=== PATIENT | female | born 1980 | race American Indian/Alaskan Native ===

== ENCOUNTER 2018-04-02 06:58 | Day surgery (SDC) | payer OTHER ==
--- NOTE | 2018-04-02 06:54 | History and Physical Report ---
History of Present Illness Date of examination: 03/31/18 Chief complaint: Dysfunctional Uterine Bleeding History of present illness: Pt is a 38 year old -[place] female presents for surgical management of dysfunctional uterine bleeding not improved by medical management. Past History Past Medical History: other (Obesity ) Past Surgical History: RN OR LPN/uterine surgery (tubal ligation ), section ( x 3 ) RN OR LPN History: abnormal PAP smear, chlamydia (remote history) Family/Genetic History: diabetes, hypertension, cancer Social history: no significant social history, Medications and Allergies Allergies Allergy/AdvReac Type Severity Reaction Status Date / Time No Known Allergies Allergy Verified 03/27/18 10:40 Home Medications Medication Instructions Recorded Confirmed Last Taken Type Meloxicam, Submicronized 15 mg PO DAILY 03/27/18 03/27/18 Unknown History Omeprazole 40 mg PO DAILY 03/27/18 03/27/18 Unknown History Prazosin [Minipress] 1 mg PO DAILY 03/27/18 03/27/18 Unknown History Sertraline [Zoloft] 150 mg PO QDAY 03/27/18 03/27/18 Unknown History traZODone [Desyrel] 50 mg PO QHS 03/27/18 03/27/18 Unknown History Active Meds: Active Medications Lactated Ringer's (Lactated Ringers) 1,000 mls @ 100 mls/hr IV DIRECT BENJAMIN Midazolam HCl (Versed) 2 mg IV PREOP NR Stop: 04/02/18 23:59 Review of Systems All systems: negative - Physical Exam Breasts: Positive: deferred Cardiovascular: Regular rate Lungs: Positive: Clear to auscultation Abdomen: Positive: soft (obese ) Extremities: Positive: normal Results All other labs normal. Assessment and Plan A: Dysfunctional Uterine Bleeding Obesity P: Proceed with dilation and curettage, hysteroscopy, Novasure endometrial ablation and other indicated procedures.
[~2018-04-02 06:58] MED LIST: LACTATED RINGERS 1,000 ML IV SCH; NACL 0.9% IR ONE; VERSED IV NR
[2018-04-02] MEDS ORDERED: ANCEF/STERILE WATER 2 GM/20 ML 2 GM/20 ML SYRINGE IV NR (07:00)
[2018-04-02] MEDS ORDERED: NACL BACTERIOSTATIC INFILTRATI ONE (07:56)
[2018-04-02 08:19] LABS: Hematocrit 32.2 % (30.3-42.9); Hemoglobin 9.9 gm/dl (10.1-14.3); Mean Corpuscular HGB Conc 31 % (30-34); Mean Corpuscular Volume 71 fl (79-97); Platelet Count 251 K/mm3 (140-440); Red Blood Count 4.56 M/mm3 (3.65-5.03)
[2018-04-02 08:28] LABS: Mean Corpuscular Hemoglobin 22 pg (28-32); Red Cell Distribution Width 20.5 % (13.2-15.2)
--- NOTE | 2018-04-02 08:56 | Anesthesia Day of Surgery ---
Anesthesia Day of Surgery - Day of Surgery Patient Examined: Yes Patient H&P Reviewed: Yes Patient is NPO: Yes
[2018-04-02] MEDS ORDERED: DEMEROL IV PRN (08:57)
[2018-04-02] MEDS ORDERED: ZOFRAN IV PRN (08:57)
--- NOTE | 2018-04-02 08:57 | Anesthesia Consultation ---
Anesthesia Consult and Med Hx Date of service: 04/02/18 - Airway Anesthetic Teeth Evaluation: Good ROM Head & Neck: Adequate Mental/Hyoid Distance: Adequate Mallampati Class: Class II Intubation Access Assessment: Probably Good - Pulmonary Exam CTA: Yes - Cardiac Exam Cardiac Exam: RRR - Pre-Operative Health Status ASA Pre-Surgery Classification: ASA3 Proposed Anesthetic Plan: General (obesity, denies gerd) - Central Nervous System Hx Psychiatric Problems: No - Other Systems Hx Alcohol Use: Yes (SOCIALLY) Hx Substance Use: No Hx Cancer: No Hx Obesity: Yes
[2018-04-02] MEDS ORDERED: LACTATED RINGERS 1,000 ML IV SCH (09:00)
[2018-04-02] MEDS ORDERED: DIPRIVAN 10 MG/ML IV ONE (09:07)
[2018-04-02] MEDS ORDERED: XYLOCAINE CARDIAC IV ONE (09:08)
[2018-04-02] MEDS ORDERED: DILAUDID ONE (09:09)
[2018-04-02] MEDS ORDERED: ZEMURON IV ONE (09:09)
[2018-04-02] MEDS ORDERED: ZOFRAN ONE (09:33)
[2018-04-02] MEDS ORDERED: TORADOL ONE (09:33)
[2018-04-02] MEDS ORDERED: ROBINUL ONE ×2 (09:38→09:45)
[2018-04-02] MEDS ORDERED: BLOXIVERZ ONE (09:45)
--- NOTE | 2018-04-02 10:30 | Operative Report ---
Operative Report Operative Report: Date of procedure: April 02, 2018 Preoperative diagnosis: 1) Dysfunctional Uterine Bleeding 2) Obesity Postoperative diagnosis: Same Procedure: 1)Diagnostic Hysteroscopy 2)Dilation and Curettage 3)NovaSure Endometrial Ablation Surgeon: Mary Ling M.D. Findings: 1) Anteverted mobile uterus that sounded to 12 cm 2) Proliferative endometrium on hysteroscopy Anesthesia: General Estimated blood loss: Minimal (10 mL ) IV fluid: 500 mL Specimens: endometrial curettings to pathology Drains: None Complications: None Disposition: Stable to PACU Indications for procedure: The patient is a 38 year old -[place] female who presents for surgical management of dysfunctional uterine bleeding. Operation in detail: After the risks, benefits, alternatives and complications of the procedure were explained to the patient, she gave informed consent for the procedure. She was subsequently taken to the operating room and placed in the dorsal supine position. SCDs noted to be in place and functioning. Gen. anesthesia was then induced without difficulty. The patient was in placement dorsal lithotomy position and prepped and draped in normal sterile fashion. A timeout was performed. An exam under anesthesia was performed yielding a mobile anteverted uterus. The bladder was then catheterized and drained of urine. An open sided speculum was then placed into the vagina for adequate visualization of the cervix. The anterior lip of the cervix was then grasped with a tenaculum for traction. The cervical length was then sounded to 5 cm and the uterus was then sounded to 12 cm. The cavity length was then noted to be 6.5+ cm. At this time a hysteroscope was introduced to visualize the endometrial cavity which revealed proliferative endometrium. A sharp endometrial curettage was then performed and the curettings were sent to pathology. Attention was then turned to the endometrial ablation. At this time White dilators were used to sequentially dilate the cervix to a # 25. Next the disposable NovaSure device was connected to the RF controller. The NovaSure disposable device was deployed to the locked position and noted to fully extend. The device was then placed in the unlocked position. The disposable device was then inserted into the uterine cavity with traction on the tenaculum. The device was then seated per protocol. After moving the device back 0.5 cm, the device was moved superiorly and inferiorly and rotated clockwise and counterclockwise to 45. The cavity width at this time was noted to be 3.7 cm. The cervical collar was then advanced to the cervix. The cavity assessment was then initiated and passed. The ablation procedure was then initiated. Once complete, the cervical collar was moved away from the cervix, the device was moved to the unlocked position, and the disposable NovaSure device was removed from the uterine cavity. The hysteroscope was reintroduced to visualize the charred endometrial cavity.At this time the single -tooth tenaculum was removed from the cervix. Silver nitrate and pressure were placed on the puncture sites to achieve hemostasis. Hemostasis was noted. All instruments were removed from the vagina atraumatically and the procedure was ended. The patient was placed into the dorsal supine position and extubated without difficulty. She was subsequently taken to the PACU in stable condition. She tolerated the procedure well. All counts were correct 2.
--- NOTE | 2018-04-02 10:35 | Short Stay Summary ---
Short Stay Documentation Date of service: 04/02/18 - History H&P: dictated Social history: no significant social history, - Allergies and Medications Current Medications: Allergies No Known Allergies Allergy (Verified 03/27/18 10:40) Home Medications Medication Instructions Recorded Confirmed Last Taken Type Meloxicam, Submicronized 15 mg PO DAILY 03/27/18 03/27/18 Unknown History Omeprazole 40 mg PO DAILY 03/27/18 03/27/18 Unknown History Prazosin [Minipress] 1 mg PO DAILY 03/27/18 03/27/18 Unknown History Sertraline [Zoloft] 150 mg PO QDAY 03/27/18 03/27/18 Unknown History traZODone [Desyrel] 50 mg PO QHS 03/27/18 03/27/18 Unknown History Active Medications Hydromorphone HCl (Dilaudid) 0.5 mg IV Q10MIN PRN PRN Reason: Pain , Severe (7-10) Stop: 04/02/18 15:00 Lactated Ringer's (Lactated Ringers) 1,000 mls @ 100 mls/hr IV DIRECT BENJAMIN Last Admin: 04/02/18 08:24 Dose: 100 mls/hr Cefazolin Sodium (Ancef/Sterile Water 2 Gm/20 Ml) 2 gm in 20 mls @ 80 mls/hr IV PREOP NR; Protocol Stop: 04/02/18 23:59 Lactated Ringer's (Lactated Ringers) 1,000 mls @ 100 mls/hr IV DIRECT BENJAMIN Meperidine HCl (Demerol) 25 mg IV ONCE PRN PRN Reason: Shivering Stop: 04/02/18 15:00 Midazolam HCl (Versed) 2 mg IV PREOP NR Stop: 04/02/18 23:59 - Physical exam Breasts: deferred - Brief post op/procedure progress note Date of procedure: 04/02/18 Pre-op diagnosis: Dysfunctional Uterine Bleeding Post-op diagnosis: same Procedure: 1)Diagnostic Hysteroscopy 2)Dilation and Curettage 3)NovaSure Endometrial Ablation Findings: 1) Anteverted mobile uterus that sounded to 12 cm 2) Proliferative endometrium on hysteroscopy Surgeon: OLU HAGAN Estimated blood loss: minimal Pathology: list (endometrial curettings to pathology) Specimen disposition: to lab Condition: stable - Hospital course Hospital course: Pt underwent hysteroscopy, dilation and curettage and Novasure endometrial ablation which she tolerated well. She was observed in the PACU until she met discharge criteria. - Disposition Condition at discharge: Stable Disposition: DC- TO HOME OR SELFCARE - Discharge Diagnoses (1) DUB (dysfunctional uterine bleeding) Status: Acute (2) Obesity Status: Acute Qualifiers: Serious obesity comorbidity presence: unspecified whether serious comorbidity present Body mass index: BMI 38.0-38.9 Short Stay Discharge Plan Activity: other (Nothing in vagina, no tub baths x 4 weeks ) Weight Bearing Status: Full Weight Bearing Diet: regular Follow up with: MARS HERNANDEZ MD [Primary Care Provider] - 7 Days OLU HAGAN MD [Staff Physician] - 04/16/18 (please call to schedule your appt )
[2018-04-02] MEDS: DILAUDID IV PRN ×3 (10:38→10:58)
[2018-04-02] MEDS ORDERED: PERCOCET 5/325 PO PRN (11:02)
[2018-04-02] MEDS ORDERED: BENADRYL IV ONE (12:07)
--- NOTE | 2018-04-02 12:43 | Post Anesthesia Evaluation ---
- Post Anesthesia Evaluation Patient Participated: Yes Airway Patent: Yes Stable Respiratory Function: Yes Nausea/Vomiting: No Temp > 96.8F: Yes Pain Manageable: Yes Adequeate Hydration: Yes Anesthesia Complications: No
[2018-04-02 18:05] VITALS: BP 130/80
== END 2018-04-02 14:30 | disposition home or self-care (01) ==
LOC: OR 06:58
PROVIDERS: ATTEND Obstetrics & Gynecology
DX: N84.0 Polyp of corpus uteri (principal); E66.9 Obesity, unspecified; Z68.35 Body mass index [BMI] 35.0-35.9, adult; Z98.890 Other specified postprocedural states; Z98.51 Tubal ligation status; Z91.018 Allergy to other foods
CPT/HCPCS: 36415; 58563; 84703; 85027; 88305; A4217; J0690; J1170; J1200; J1885; J2001; J2250; J2405; J2704; J2710; J7120

== ENCOUNTER 2018-10-01 13:36 | Emergency (ER) | payer OTHER ==
--- NOTE | 2018-10-01 15:34 | Emergency Department Report ---
ED Recheck HPI - General Chief Complaint: Skin/Abscess/Foreign Body Stated Complaint: FOLLOW UP/REMOVAL Time Seen by Provider: 10/01/18 15:00 Source: patient Mode of arrival: Ambulatory Limitations: No Limitations - History of Present Illness Initial Visit For: abscess Returns Today for: other (packing removal) Symptoms Since Prior Visit: no new symptoms, improved Associated Symptoms: none. denies: fever, chills, chest pain, shortness of breath, rash, malaise, nasuea, abdominal pain - Related Data Home Medications Medication Instructions Recorded Confirmed Last Taken Meloxicam, Submicronized 15 mg PO DAILY 03/27/18 05/08/18 05/07/18 09:00 Omeprazole 40 mg PO DAILY 03/27/18 05/08/18 05/03/18 17:00 Prazosin [Minipress] 1 mg PO QDAY PRN 03/27/18 05/08/18 04/28/18 21:00 Sertraline [Zoloft] 150 mg PO QDAY 03/27/18 05/08/18 05/07/18 09:00 traZODone [Desyrel] 50 mg PO QHS 03/27/18 05/08/18 05/06/18 21:00 Previous Rx's Medication Instructions Recorded Last Taken Type Docusate Sodium [Colace] 100 mg PO BID PRN #60 capsule 05/11/18 Unknown Rx Ibuprofen [Motrin] 800 mg PO Q8HR PRN #60 tablet 05/11/18 Unknown Rx Oxycodone HCl/Acetaminophen 1 each PO Q6HR PRN #45 tablet 05/11/18 Unknown Rx [Percocet 7.5/325 mg] Acetaminophen/Codeine [Tylenol 1 tab PO Q6H PRN #12 tab 09/28/18 Unknown Rx /Codeine # 3 tab] Clindamycin [Clindamycin CAP] 300 mg PO Q8H #21 cap 09/28/18 Unknown Rx Allergies Allergy/AdvReac Type Severity Reaction Status Date / Time orange Allergy Hives Verified 10/01/18 13:57 pineapple Allergy Hives Verified 10/01/18 13:57 strawberry Allergy HIVES AND Verified 10/01/18 13:57 THROAT SWELLING ED Review of Systems ROS: Stated complaint: FOLLOW UP/REMOVAL Other details as noted in HPI Constitutional: denies: chills, fever Eyes: denies: eye pain, eye discharge, vision change ENT: denies: ear pain, throat pain Respiratory: denies: cough, shortness of breath, wheezing Cardiovascular: denies: chest pain, palpitations Endocrine: no symptoms reported Gastrointestinal: denies: abdominal pain, nausea, diarrhea Genitourinary: denies: urgency, dysuria, discharge Musculoskeletal: denies: back pain, joint swelling, arthralgia Skin: denies: rash, lesions Neurological: denies: headache, weakness, paresthesias Psychiatric: denies: anxiety, depression Hematological/Lymphatic: denies: easy bleeding, easy bruising ED Past Medical Hx - Past Medical History Previous Medical History?: Yes Hx Hypertension: No Hx Heart Attack/AMI: No Hx GERD: Yes Hx Liver Disease: No Hx Renal Disease: No Hx Arthritis: Yes Hx Seizures: No Hx Asthma: No Hx HIV: No - Surgical History Past Surgical History?: Yes Additional Surgical History: hysterectomy 04/2018, x 3 - Social History Smoking Status: Never Smoker Substance Use Type: Alcohol - Medications Home Medications: Home Medications Medication Instructions Recorded Confirmed Last Taken Type Meloxicam, Submicronized 15 mg PO DAILY 03/27/18 05/08/18 05/07/18 09:00 History Omeprazole 40 mg PO DAILY 03/27/18 05/08/18 05/03/18 17:00 History Prazosin [Minipress] 1 mg PO QDAY PRN 03/27/18 05/08/18 04/28/18 21:00 History Sertraline [Zoloft] 150 mg PO QDAY 03/27/18 05/08/18 05/07/18 09:00 History traZODone [Desyrel] 50 mg PO QHS 03/27/18 05/08/18 05/06/18 21:00 History Docusate Sodium [Colace] 100 mg PO BID PRN #60 capsule 05/11/18 Unknown Rx Ibuprofen [Motrin] 800 mg PO Q8HR PRN #60 tablet 05/11/18 Unknown Rx Oxycodone HCl/Acetaminophen 1 each PO Q6HR PRN #45 tablet 05/11/18 Unknown Rx [Percocet 7.5/325 mg] Acetaminophen/Codeine [Tylenol 1 tab PO Q6H PRN #12 tab 09/28/18 Unknown Rx /Codeine # 3 tab] Clindamycin [Clindamycin CAP] 300 mg PO Q8H #21 cap 09/28/18 Unknown Rx ED Physical Exam - General Limitations: No Limitations General appearance: alert, in no apparent distress - Head Head exam: Present: atraumatic, normocephalic - Extremities Exam Extremities exam: Present: normal inspection, full ROM, normal capillary refill, other (dressing to left axilla. no swelling or cellulitis noted. ). Absent: tenderness - Back Exam Back exam: Present: normal inspection, full ROM - Neurological Exam Neurological exam: Present: alert, oriented X3 - Psychiatric Psychiatric exam: Present: normal affect, normal mood - Skin Skin exam: Present: warm, dry, intact, normal color. Absent: rash ED Course Vital Signs 10/01/18 13:50 Temperature 97.8 F Pulse Rate 85 Respiratory 18 Rate Blood Pressure 139/89 O2 Sat by Pulse 98 Oximetry - Reevaluation(s) Reevaluation #1: 10/01/18 15:32 Patient is speaking in full sentences with no signs of distress noted. ED Recheck MDM - Medical Decision Making This is a 38-year-old female that presents with abscess packing removal. She is stable and was examined by me. One fourth iodoform packing has been removed from the left axilla. No signs of pus, , drainage, or cellulitis. No swelling noted. Patient was referred to Follow-up with a primary care doctor in 3-5 days or if symptoms worsen and continue return to emergency room as soon as possible. At time of discharge, the patient does not seem toxic or ill in appearance. No acute signs of distress noted. Patient agrees to discharge treatment plan of care. No further questions noted by the patient. Critical care attestation.: If time is entered above; I have spent that time in minutes in the direct care of this critically ill patient, excluding procedure time. ED Disposition Clinical Impression: Abscess packing removal Disposition: DC-01 TO HOME OR SELFCARE Is pt being admited?: No Does the pt Need Aspirin: No Condition: Stable Instructions: Acute Wound Care (ED) Additional Instructions: Follow-up with a primary care doctor in 3-5 days or if symptoms worsen and continue return to emergency room as soon as possible. Continue taking antibiotic that was prescribed to during her initial digit. Referrals: PRIMARY CARE, [Primary Care Provider] - 3-5 Days GOODJOIN,AASHISH B, MD [Staff Physician] - 3-[address] [facility] [place] [Outside] - 3-5 Days [facility] [Outside] - 3-5 Days Forms: Work/School Release Form(ED)
== END 2018-10-01 15:50 | disposition home or self-care (01) ==
LOC: ED 13:36
CPT/HCPCS: 99282

== ENCOUNTER 2019-06-04 19:52 | Emergency (ER) | payer SELFPAY ==
--- NOTE | 2019-06-04 20:46 | Emergency Department Report ---
Blank Doc - Documentation Documentation: 39-year-old female that presents with midsternum chest pain and SOB. This initial assessment/diagnostic orders/clinical plan/treatment(s) is/are subject to change based on patient's health status, clinical progression and re- assessment by fellow clinical providers in the ED. Further treatment and workup at subsequent clinical providers discretion. Patient/guardians urged not to elope from the ED as their condition may be serious if not clinically assessed and managed. Initial orders include: 1- Patient sent to [facility] for further evaluation and treatment 2- EKG 3- CXR 4- labs
[2019-06-04 21:11] LABS: Basophils % (Auto) 0.5 % (0.0-1.8); Eosinophils # (Auto) 0.1 K/mm3 (0.0-0.4); Eosinophils % (Auto) 2.2 % (0.0-4.3); Hematocrit 41.5 % (30.3-42.9); Hemoglobin 13.4 gm/dl (10.1-14.3); Lymphocytes # (Auto) 2.3 K/mm3 (1.2-5.4); Lymphocytes % (Auto) 41.7 % (13.4-35.0); Mean Corpuscular HGB Conc 32 % (30-34); Mean Corpuscular Volume 89 fl (79-97); Monocytes # (Auto) 0.4 K/mm3 (0.0-0.8); Monocytes % (Auto) 6.3 % (0.0-7.3); Platelet Count 213 K/mm3 (140-440); Red Blood Count 4.68 M/mm3 (3.65-5.03); Red Cell Distribution Width 14.2 % (13.2-15.2)
[2019-06-04 21:36] LABS: BUN/Creatinine Ratio 14; Blood Urea Nitrogen 14 mg/dL (7-17); Calcium 9.5 mg/dL (8.4-10.2); Hemolysis Index 13
[2019-06-04 21:53] LABS: Bilirubin,Urine NEG (Negative); Blood,Urine NEG (Negative); Color,Urine Yellow (Yellow); Mucus,Urine 1+ /HPF; Protein,Urine <15 mg/dL mg/dL (Negative)
--- NOTE | 2019-06-04 22:58 | XRay Report ---
CHEST 2 VIEWS INDICATION / CLINICAL INFORMATION: Chest Pain. COMPARISON: None available. FINDINGS: The lungs are well-inflated and clear. No pleural fluid or pneumothorax. Normal cardiomediastinal kalyn houette. No acute bony abnormality. Signer Name: Gregory Blanca MD Signed: 06/04/2019 10:53 PM Workstation Name: [id number]
[2019-06-04] MEDS ORDERED: ASPIRIN PO ONE (23:24)
--- NOTE | 2019-06-05 01:12 | Emergency Department Report ---
ED Chest Pain HPI - General Chief Complaint: Chest Pain Stated Complaint: CHEST PAIN Time Seen by Provider: 06/04/19 20:45 Source: patient Mode of arrival: Ambulatory Limitations: No Limitations - History of Present Illness Initial Comments: Patient is a 39-year-old -[place] female with a history of GERD and anxiety with the patient presents to the ED with complaint of acute onset persistent left-sided chest wall pain that radiates to the left arm constantly for the last 2 days worse in the last 2 hours prior to arrival. Patient states that the pain is worse with exertion and feels like pressure and tightness in her chest. Patient denies fever, chills, cough, dizziness, headache, nausea, vomiting, traumatic injury, heavy lifting, headache, palpitations, abdominal pain, sore throat, diaphoresis, numbness and tingling of upper extremities bilaterally or neck pain. MD Complaint: chest pain, other (dyspnea) -: Sudden, days(s) (2) Onset: during exertion Pain Location: substernal, left chest Pain Radiation: none Severity: moderate Severity scale (0 -10): 5 Quality: tightness, aching, pressure, squeezing Consistency: constant Improves With: nothing Worsens With: exertion, movement re: dyspnea. denies: nausea, vomting, diaphoresis, sense of impending doom Other Symptoms: denies: cough, fever, syncope, rash, acid taste in mouth, leg swelling, palpitations, burping, other Treatments Prior to Arrival: none - Related Data On Oral Contraceptives: No (s/o Hysterectomy) Home Medications Medication Instructions Recorded Confirmed Last Taken Meloxicam, Submicronized 15 mg PO DAILY 03/27/18 05/08/18 05/07/18 09:00 Omeprazole 40 mg PO DAILY 03/27/18 05/08/18 05/03/18 17:00 Prazosin [Minipress] 1 mg PO QDAY PRN 03/27/18 05/08/18 04/28/18 21:00 Sertraline [Zoloft] 150 mg PO QDAY 03/27/18 05/08/18 05/07/18 09:00 traZODone [Desyrel] 50 mg PO QHS 03/27/18 05/08/18 05/06/18 21:00 Previous Rx's Medication Instructions Recorded Last Taken Type Docusate Sodium [Colace] 100 mg PO BID PRN #60 capsule 05/11/18 Unknown Rx Ibuprofen [Motrin] 800 mg PO Q8HR PRN #60 tablet 05/11/18 Unknown Rx Oxycodone HCl/Acetaminophen 1 each PO Q6HR PRN #45 tablet 05/11/18 Unknown Rx [Percocet 7.5/325 mg] Acetaminophen/Codeine [Tylenol 1 tab PO Q6H PRN #12 tab 09/28/18 Unknown Rx /Codeine # 3 tab] Clindamycin [Clindamycin CAP] 300 mg PO Q8H #21 cap 09/28/18 Unknown Rx Cyclobenzaprine HCl [Flexeril 5 MG 5 mg PO Q8H PRN #15 tab 06/05/19 Unknown Rx TAB] Ibuprofen [Motrin] 600 mg PO Q8H PRN #20 tablet 06/05/19 Unknown Rx hydrOXYzine PAMOATE [Vistaril] 25 mg PO Q6HR PRN #30 capsule 06/05/19 Unknown Rx raNITIdine HCl [Zantac] 150 mg PO Q12H #30 tablet 06/05/19 Unknown Rx Allergies Allergy/AdvReac Type Severity Reaction Status Date / Time orange Allergy Hives Verified 10/01/18 13:57 pineapple Allergy Hives Verified 10/01/18 13:57 strawberry Allergy HIVES AND Verified 10/01/18 13:57 THROAT SWELLING Heart Score - HEART Score History: Slightly suspicious EKG: Normal Age: < 45 Risk factors: No known risk factors Troponin: < normal limit HEART Score: 0 - Critical Actions Critical Actions: 0-3 pts:0.9-1.7%risk of adverse cardiac event.Candidate for discharge ED Review of Systems ROS: Stated complaint: CHEST PAIN Other details as noted in HPI Constitutional: denies: chills, fever Eyes: denies: eye pain, eye discharge, vision change ENT: denies: ear pain, throat pain Respiratory: shortness of breath. denies: cough, wheezing Cardiovascular: chest pain. denies: palpitations Endocrine: no symptoms reported Gastrointestinal: denies: abdominal pain, nausea, diarrhea Genitourinary: denies: urgency, dysuria, discharge Musculoskeletal: denies: back pain, joint swelling, arthralgia Skin: denies: rash, lesions Neurological: denies: headache, weakness, paresthesias Psychiatric: denies: anxiety, depression Hematological/Lymphatic: denies: easy bleeding, easy bruising ED Past Medical Hx - Past Medical History Previous Medical History?: Yes Hx Hypertension: No Hx Heart Attack/AMI: No Hx GERD: Yes Hx Liver Disease: No Hx Renal Disease: No Hx Arthritis: Yes Hx Seizures: No Hx Asthma: No Hx HIV: No - Surgical History Past Surgical History?: Yes Additional Surgical History: hysterectomy 04/2018, x 3 - Social History Smoking Status: Never Smoker Substance Use Type: None - Medications Home Medications: Home Medications Medication Instructions Recorded Confirmed Last Taken Type Meloxicam, Submicronized 15 mg PO DAILY 03/27/18 05/08/18 05/07/18 09:00 History Omeprazole 40 mg PO DAILY 03/27/18 05/08/18 05/03/18 17:00 History Prazosin [Minipress] 1 mg PO QDAY PRN 03/27/18 05/08/18 04/28/18 21:00 History Sertraline [Zoloft] 150 mg PO QDAY 03/27/18 05/08/18 05/07/18 09:00 History traZODone [Desyrel] 50 mg PO QHS 03/27/18 05/08/18 05/06/18 21:00 History Docusate Sodium [Colace] 100 mg PO BID PRN #60 capsule 05/11/18 Unknown Rx Ibuprofen [Motrin] 800 mg PO Q8HR PRN #60 tablet 05/11/18 Unknown Rx Oxycodone HCl/Acetaminophen 1 each PO Q6HR PRN #45 tablet 05/11/18 Unknown Rx [Percocet 7.5/325 mg] Acetaminophen/Codeine [Tylenol 1 tab PO Q6H PRN #12 tab 09/28/18 Unknown Rx /Codeine # 3 tab] Clindamycin [Clindamycin CAP] 300 mg PO Q8H #21 cap 09/28/18 Unknown Rx Cyclobenzaprine HCl [Flexeril 5 MG 5 mg PO Q8H PRN #15 tab 06/05/19 Unknown Rx TAB] Ibuprofen [Motrin] 600 mg PO Q8H PRN #20 tablet 06/05/19 Unknown Rx hydrOXYzine PAMOATE [Vistaril] 25 mg PO Q6HR PRN #30 capsule 06/05/19 Unknown Rx raNITIdine HCl [Zantac] 150 mg PO Q12H #30 tablet 06/05/19 Unknown Rx ED Physical Exam - General Limitations: No Limitations General appearance: alert, in no apparent distress - Head Head exam: Present: atraumatic, normocephalic, normal inspection - Eye Eye exam: Present: normal appearance, PERRL, EOMI. Absent: scleral icterus, conjunctival injection, nystagmus Pupils: Present: normal accommodation - ENT ENT exam: Present: normal exam, normal orophraynx, mucous membranes moist, TM's normal bilaterally, normal external ear exam - Neck Neck exam: Present: normal inspection, full ROM. Absent: tenderness, lymphadenopathy - Respiratory Respiratory exam: Present: normal lung sounds bilaterally. Absent: respiratory distress, wheezes, rales, rhonchi, chest wall tenderness, accessory muscle use, decreased breath sounds, prolonged expiratory - Cardiovascular Cardiovascular Exam: Present: regular rate, normal rhythm, normal heart sounds. Absent: systolic murmur, diastolic murmur, rubs, gallop - GI/Abdominal GI/Abdominal exam: Present: soft, normal bowel sounds. Absent: tenderness, gu arding, rebound, hyperactive bowel sounds, mass - Extremities Exam Extremities exam: Present: normal inspection, full ROM, normal capillary refill - Back Exam Back exam: Present: normal inspection, full ROM. Absent: tenderness, CVA tenderness (R), CVA tenderness (L), muscle spasm, paraspinal tenderness, vertebral tenderness - Neurological Exam Neurological exam: Present: alert, oriented X3, CN II-XII intact, normal gait, reflexes normal - Psychiatric Psychiatric exam: Present: normal affect, normal mood - Skin Skin exam: Present: warm, dry, intact, normal color. Absent: rash ED Course Vital Signs 06/04/19 20:18 Temperature 98.1 F Pulse Rate 97 H Respiratory 18 Rate Blood Pressure 135/87 O2 Sat by Pulse 99 Oximetry - Reevaluation(s) Reevaluation #1: 06/05/19 01:09 This is a 39-year-old -[place] female with no past medical history, and non-tobacco user and is not on any control presents to the ED with left- sided chest pain constantly for the last 2 days worse in the last 2 hours prior to arrival. Patient is alert and oriented 3 in the ED and is not in distress with normal vital signs. EKG shows normal sinus rhythm with a ventricular rate of [address] or T-wave abnormalities or pathological Q waves. Patient was treated the ED initially with aspirin. Lab test results were reviewed and are all nonactionable including initial troponin level and 2 hour repeat troponin level as well as d-dimer levels. Chest x-ray shows no acute cardiopulmonary commodities. The patient's heart score is 0 since the patient has no risk factors for coronary artery disease. Based on the patient's physical exam findings, patient's symptoms are likely due to competitions of GERD or anxiety as well as muscle strain and muscle spasms. On reevaluation, patient feeling better and patient was discharged home on medications and advised follow-up with her primary care physician in 5-7 days for reevaluation or return to the ED immediately if symptoms get worse. IZABELLA score - Izabella Score Age > 65: (0) No Aspirin use within the Past 7 Days: (0) No 3 or more CAD Risk Factors: (0) No 2 or more Angina events in past 24 hrs: (0) No Known CAD with more than 50% Stenosis: (0) No Elevated Cardiac Markers: (0) No ST Deviation Greater than 0.5mm: (0) No IZABELLA Score: 0 ED Medical Decision Making - Lab Data Result diagrams: 06/04/19 20:53 06/04/19 20:53 - EKG Data EKG shows normal: sinus rhythm - EKG Data Interpretation: normal EKG 06/05/19 01:23 Normal sinus rhythm with ventricular rate 95 bpm, no ST or T-wave abnormalities - Radiology Data Radiology results: report reviewed, image reviewed Chest x-ray shows no acute cardiopulmonary abnormalities - Medical Decision Making This is a 39-year-old -[place] female with no past medical history, and non-tobacco user and is not on any control presents to the ED with left- sided chest pain constantly for the last 2 days worse in the last 2 hours prior to arrival. Patient is alert and oriented 3 in the ED and is not in distress with normal vital signs. EKG shows normal sinus rhythm with a ventricular rate of [address] or T-wave abnormalities or pathological Q waves. Patient was treated the ED initially with aspirin. Lab test results were reviewed and are all nonactionable including initial troponin level and 2 hour repeat t roponin level as well as d-dimer levels. Chest x-ray shows no acute cardiopulmonary commodities. The patient's heart score is 0 as well as IZABELLA score which is also 0 since the patient has no risk factors for coronary artery disease. Based on the patient's physical exam findings, patient's symptoms are likely due to competitions of GERD or anxiety as well as muscle strain and muscle spasms. On reevaluation, patient feeling better and patient was discharged home on medications and advised follow-up with her primary care physician in 5-7 days for reevaluation or return to the ED immediately if symptoms get worse. - Differential Diagnosis ACS; Muscle strain; GERD; Pneumonia; Anxiety Critical care attestation.: If time is entered above; I have spent that time in minutes in the direct care of this critically ill patient, excluding procedure time. ED Disposition Clinical Impression: Acute nonspecific chest pain with low risk of coronary artery disease, Muscle strain of anterior chest wall, Anxiety as acute reaction to exceptional stress GERD (gastroesophageal reflux disease) Qualifiers: Esophagitis presence: without esophagitis Qualified Code(s): K21.9 - Gastro- esophageal reflux disease without esophagitis Disposition: TO HOME OR SELFCARE Is pt being admited?: No Does the pt Need Aspirin: No Condition: Stable Instructions: Chest Pain (ED), Costochondritis (ED), Muscle Strain (ED), Anxiety (ED), Gastroesophageal Reflux Disease (ED) Additional Instructions: Take medications with food, drink plenty of fluids and follow up with your primary care physician in 5-7 days for reevaluation. Return to the ED immediately if symptoms get worse. Prescriptions: Cyclobenzaprine HCl [Flexeril 5 MG TAB] 5 mg PO Q8H PRN #15 tab PRN Reason: Muscle Spasm Ibuprofen [Motrin] 600 mg PO Q8H PRN #20 tablet PRN Reason: Pain hydrOXYzine PAMOATE [Vistaril] 25 mg PO Q6HR PRN #30 capsule PRN Reason: Anxiety raNITIdine HCl [Zantac] 150 mg PO Q12H #30 tablet Referrals: PRIMARY CARE, [Primary Care Provider] - 3-5 Days Time of Disposition: 01:15 Print Language: TAIWANESE
[2019-06-05] MEDS ORDERED: TORADOL IM ONE (01:20)
[2019-06-05] MEDS ORDERED: ALUM-MAG HYDROX-SIMETH 200-200-20MG/5ML PO ONE (01:20)
[2019-06-05] MEDS ORDERED: LIDOCAINE VISCOUS 2% PO ONE (01:20)
[2019-06-05 01:38] VITALS: BP 118/77
== END 2019-06-05 01:45 | disposition home or self-care (01) ==
LOC: ED 19:52
DX: S29.011A Strain of muscle and tendon of front wall of thorax, initial encounter (principal); K21.9 Gastro-esophageal reflux disease without esophagitis; F41.9 Anxiety disorder, unspecified; Z90.710 Acquired absence of both cervix and uterus; Z79.899 Other long term (current) drug therapy; Z91.018 Allergy to other foods; X58.XXXA Exposure to other specified factors, initial encounter; Y93.89 Activity, other specified; Y92.89 Other specified places as the place of occurrence of the external cause; Y99.8 Other external cause status
CPT/HCPCS: 36415; 71046; 80048; 81001; 84484; 84703; 85025; 85379; 93005; 93010; 96372; 99284; J1885